=== PATIENT | female | born 1935 | race African-American/Black ===

== ENCOUNTER 2017-09-12 06:22 | Inpatient (IN) ==
[2017-09-11 14:50] LABS: Basophils % 0.7 % (0.0-0.8); Eosinophils # 0.2 10*3/uL (0.0-0.87); Hematocrit 47.5 VOL% (35.7-47.0); Hemoglobin 15.1 GM/DL (12.0-16.0); Immature Granulocytes % 0.2 %; Immature Granulocytes Absolute 0.01 #; Lymphocytes # 1.5 10*3/uL (1.4-4.0); Lymphocytes % 34.4 % (21.3-54.2); Mean Corpuscular HGB Conc 31.8 GM/DL (32-36); Mean Corpuscular Hemoglobin 27 PG (27-34); Mean Corpuscular Volume 85.9 FL (87-102); Mean Platelet Volume 9.2 FL (9.6-12.0); Monocytes # 0.5 10*3/uL (0.11-0.8); Monocytes % 11.9 % (1.7-12.7); Neutrophils # 2.1 10*3/uL (1.4-7.4); Neutrophils % 48.8 % (38.7-73.9); Platelet Count 246 T/CUMM (130-400); Red Blood Count 5.53 MC/CUMM (3.8-5.5); Red Cell Distribution Width 15.9 % (9.3-17.3); White Blood Count 4.2 T/CUMM (4-12)
[2017-09-11 15:13] LABS: Calcium 9.3 MG/DL (8.5-10.1); Potassium 4.2 MMOL/L (3.5-5.1)
[2017-09-12] MEDS ORDERED: ceFAZolin 1,000 MG in SYRINGE 1 EACH IV ONE (06:30)
[2017-09-12] MEDS ORDERED: ceFAZolin 1,000 MG VIAL ONE (08:37)
[2017-09-12] MEDS ORDERED: ISOSULFAN BLUE 5 ML VIAL SUBCUT ONE (10:37)
[2017-09-12] MEDS ORDERED: LACTATED RINGERS 1,000 ML IV SCH (11:30)
[2017-09-12] MEDS ORDERED: fentaNYL 100 MCG/2 ML VIAL ONE (15:32)
[2017-09-12] MEDS ORDERED: PROPOFOL 200 MG/20 ML VIAL IV ONE (15:32)
[2017-09-12] MEDS ORDERED: SEVOFLURANE 1 UNIT/15 MINUTE INH ONE (15:32)
[2017-09-12] MEDS ORDERED: LACTATED RINGERS 1,000 ML IV ONE (15:33)
[2017-09-12] MEDS ORDERED: ONDANSETRON 4 MG/2 ML VIAL ONE (15:33)
[2017-09-12] MEDS ORDERED: GLYCOPYRROLATE 0.4 MG/2 ML VIAL ONE (15:33)
[2017-09-12] MEDS ORDERED: SUCCINYLCHOLINE 200 MG/10 ML VIAL ONE (15:33)
[2017-09-12 15:41] LABS: Apearance,Urine CLEAR (Clear); Bilirubin,Urine Negative (Negative); Blood, Urine Small mg/dL (Negative); Glucose,Urine (UA) Negative (Negative); Ketones,Urine 5 mg/dL (Negative); Mucus,Urine Occasional /LPF (Occasional); Nitrite,Urine Negative (Negative); Protein,Urine Negative; RBC,Urine <1 /HPF (0-4); Urine Color Straw (Yellow); Urine Specific Gravity 1.006 (1.001-1.035); Urine Urobilinogen < 2.0 EU/DL (0.2-1.0); WBC,Urine <1 /HPF (0-6)
[2017-09-12] MEDS ORDERED: PROMETHAZINE 25 MG/1 ML VIAL IM PRN (16:38)
[2017-09-12] MEDS ORDERED: HYDROmorphone 2 MG/1 ML VIAL IV PRN (16:38)
[2017-09-12] MEDS ORDERED: ONDANSETRON 4 MG/2 ML VIAL IV PRN (16:38)
[2017-09-12] MEDS: LACTATED RINGERS 1,000 ML IV SCH (16:50)
[2017-09-12] MEDS: KETOROLAC 15 MG/1 ML VIAL IV SCH (16:58)
[2017-09-12 18:59] LABS: Basophils % 0.4 % (0.0-0.8); Eosinophils % 0.4 % (0.00-10.9); Hematocrit 41.3 VOL% (35.7-47.0); Hemoglobin 13.2 GM/DL (12.0-16.0); Immature Granulocytes % 0.4 %; Immature Granulocytes Absolute 0.03 #; Lymphocytes # 0.8 10*3/uL (1.4-4.0); Lymphocytes % 11.2 % (21.3-54.2); Mean Corpuscular Hemoglobin 28 PG (27-34); Mean Corpuscular Volume 86.4 FL (87-102); Mean Platelet Volume 9.2 FL (9.6-12.0); Monocytes # 0.8 10*3/uL (0.11-0.8); Monocytes % 10.6 % (1.7-12.7); Neutrophils # 5.6 10*3/uL (1.4-7.4); Platelet Count 186 T/CUMM (130-400); Red Blood Count 4.78 MC/CUMM (3.8-5.5); Red Cell Distribution Width 15.7 % (9.3-17.3); White Blood Count 7.3 T/CUMM (4-12)
[2017-09-13] MEDS: LACTATED RINGERS 1,000 ML IV SCH ×4 (01:46→16:12)
[2017-09-13] MEDS: KETOROLAC 15 MG/1 ML VIAL IV SCH ×2 (01:46→05:23)
[2017-09-13] MEDS ORDERED: ENOXAPARIN 40 MG/0.4 ML SYRINGE ONE (07:20)
[2017-09-13] MEDS: ENOXAPARIN 40 MG/0.4 ML SYRINGE SUBCUT SCH (07:22)
[2017-09-13] MEDS: LEVOTHYROXINE 100 MCG TABLET PO SCH (07:23)
[2017-09-13 07:24] LABS: Basophils % 0.2 % (0.0-0.8); Eosinophils % 0.2 % (0.00-10.9); Hematocrit 32.7 VOL% (35.7-47.0); Hemoglobin 10.5 GM/DL (12.0-16.0); Immature Granulocytes % 0.3 %; Immature Granulocytes Absolute 0.02 #; Lymphocytes % 15.6 % (21.3-54.2); Mean Corpuscular HGB Conc 32.1 GM/DL (32-36); Mean Corpuscular Hemoglobin 27 PG (27-34); Mean Corpuscular Volume 84.9 FL (87-102); Mean Platelet Volume 9.7 FL (9.6-12.0); Monocytes # 0.7 10*3/uL (0.11-0.8); Monocytes % 10.6 % (1.7-12.7); Neutrophils # 4.6 10*3/uL (1.4-7.4); Neutrophils % 73.1 % (38.7-73.9); Platelet Count 186 T/CUMM (130-400); Red Blood Count 3.85 MC/CUMM (3.8-5.5); Red Cell Distribution Width 15.6 % (9.3-17.3); White Blood Count 6.2 T/CUMM (4-12)
[2017-09-13 07:54] LABS: Giant Platelets Few; Hypochromasia 1+; Osmolality,Calculated 282.3 MOS/KG (273-304); Platelet Estimate Normal; Potassium 4.9 MMOL/L (3.5-5.1)
[2017-09-13] MEDS: EZETIMIBE 10 MG TABLET PO SCH (10:00)
[2017-09-13] MEDS: LOVASTATIN 20 MG TABLET PO SCH (10:00)
[2017-09-13] MEDS: ASPIRIN EC 325 MG TABLET PO SCH (10:00)
[2017-09-13] MEDS: PANTOPRAZOLE 40 MG VIAL IV SCH (10:00)
[2017-09-13] MEDS: METOPROLOL SUCCINATE XL 100 MG TABLET PO SCH (10:00)
[2017-09-13 22:40] LABS: Hematocrit 27.2 VOL% (35.7-47.0); Hemoglobin 8.8 GM/DL (12.0-16.0)
[2017-09-14] MEDS: LACTATED RINGERS 1,000 ML IV SCH ×2 (04:20→10:02)
[2017-09-14] MEDS: LEVOTHYROXINE 100 MCG TABLET PO SCH (06:14)
[2017-09-14 06:16] LABS: Basophils % 0.4 % (0.0-0.8); Eosinophils # 0.1 10*3/uL (0.0-0.87); Eosinophils % 1.5 % (0.00-10.9); Hematocrit 27.9 VOL% (35.7-47.0); Immature Granulocytes % 0.4 %; Immature Granulocytes Absolute 0.02 #; Lymphocytes # 1.2 10*3/uL (1.4-4.0); Lymphocytes % 21.4 % (21.3-54.2); Mean Corpuscular HGB Conc 32.3 GM/DL (32-36); Mean Corpuscular Hemoglobin 28 PG (27-34); Mean Corpuscular Volume 85.8 FL (87-102); Mean Platelet Volume 10.5 FL (9.6-12.0); Monocytes # 0.6 10*3/uL (0.11-0.8); Monocytes % 11.6 % (1.7-12.7); Neutrophils # 3.5 10*3/uL (1.4-7.4); Neutrophils % 64.7 % (38.7-73.9); Platelet Count 163 T/CUMM (130-400); Red Blood Count 3.25 MC/CUMM (3.8-5.5); Red Cell Distribution Width 15.7 % (9.3-17.3); White Blood Count 5.4 T/CUMM (4-12)
[2017-09-14 06:49] LABS: Calcium 7.6 MG/DL (8.5-10.1); Magnesium 2.1 MG/DL (1.8-2.4); Osmolality,Calculated 284.1 MOS/KG (273-304); Potassium 4.3 MMOL/L (3.5-5.1)
[2017-09-14] MEDS: EZETIMIBE 10 MG TABLET PO SCH (09:56)
[2017-09-14] MEDS: ENOXAPARIN 40 MG/0.4 ML SYRINGE SUBCUT SCH (09:56)
[2017-09-14] MEDS: ASPIRIN EC 325 MG TABLET PO SCH (09:56)
[2017-09-14] MEDS: PANTOPRAZOLE 40 MG VIAL IV SCH (09:56)
[2017-09-14] MEDS: LOVASTATIN 20 MG TABLET PO SCH (09:56)
[2017-09-14] MEDS: METOPROLOL SUCCINATE XL 100 MG TABLET PO SCH (10:02)
[2017-09-15] MEDS: LEVOTHYROXINE 100 MCG TABLET PO SCH (06:16)
[2017-09-15] MEDS: PANTOPRAZOLE 40 MG VIAL IV SCH (10:19)
[2017-09-15] MEDS: ASPIRIN EC 325 MG TABLET PO SCH (10:19)
[2017-09-15] MEDS: ENOXAPARIN 40 MG/0.4 ML SYRINGE SUBCUT SCH (10:19)
[2017-09-15] MEDS: EZETIMIBE 10 MG TABLET PO SCH (10:19)
[2017-09-15] MEDS: LOVASTATIN 20 MG TABLET PO SCH (10:20)
[2017-09-16] MEDS: LEVOTHYROXINE 100 MCG TABLET PO SCH (06:07)
[2017-09-16] MEDS: LOVASTATIN 20 MG TABLET PO SCH (09:49)
[2017-09-16] MEDS: ASPIRIN EC 325 MG TABLET PO SCH (09:50)
[2017-09-16] MEDS: PANTOPRAZOLE 40 MG VIAL IV SCH (09:51)
[2017-09-16] MEDS: EZETIMIBE 10 MG TABLET PO SCH (09:52)
[2017-09-16] MEDS: ENOXAPARIN 40 MG/0.4 ML SYRINGE SUBCUT SCH (09:53)
[2017-09-17 05:01] LABS: Basophils % 0.7 % (0.0-0.8); Eosinophils # 0.2 10*3/uL (0.0-0.87); Eosinophils % 5.1 % (0.00-10.9); Hemoglobin 8.6 GM/DL (12.0-16.0); Immature Granulocytes % 0.7 %; Immature Granulocytes Absolute 0.03 #; Lymphocytes # 1.1 10*3/uL (1.4-4.0); Lymphocytes % 24.1 % (21.3-54.2); Mean Corpuscular HGB Conc 31.9 GM/DL (32-36); Mean Corpuscular Hemoglobin 27 PG (27-34); Mean Corpuscular Volume 85.7 FL (87-102); Mean Platelet Volume 9.4 FL (9.6-12.0); Monocytes # 0.6 10*3/uL (0.11-0.8); Monocytes % 13.1 % (1.7-12.7); Neutrophils # 2.5 10*3/uL (1.4-7.4); Neutrophils % 56.3 % (38.7-73.9); Platelet Count 234 T/CUMM (130-400); Red Blood Count 3.15 MC/CUMM (3.8-5.5); Red Cell Distribution Width 15.5 % (9.3-17.3); White Blood Count 4.4 T/CUMM (4-12)
[2017-09-17 05:48] LABS: Calcium 7.9 MG/DL (8.5-10.1); Magnesium 2.3 MG/DL (1.8-2.4); Osmolality,Calculated 282.8 MOS/KG (273-304); Potassium 3.7 MMOL/L (3.5-5.1)
[2017-09-17] MEDS: LEVOTHYROXINE 100 MCG TABLET PO SCH (06:03)
[2017-09-17] MEDS ORDERED: ROSUVASTATIN 20 MG TABLET PO SCH (09:00)
[2017-09-17] MEDS ORDERED: PANTOPRAZOLE 40 MG TABLET PO ONE (09:09)
[2017-09-17] MEDS: LOVASTATIN 20 MG TABLET PO SCH (09:12)
[2017-09-17] MEDS: ASPIRIN EC 325 MG TABLET PO SCH (09:12)
[2017-09-17] MEDS: EZETIMIBE 10 MG TABLET PO SCH (09:12)
[2017-09-17] MEDS: ENOXAPARIN 40 MG/0.4 ML SYRINGE SUBCUT SCH (09:53)
[2017-09-17 15:47] VITALS: BP 134/78
[2017-09-18] MEDS ORDERED: PANTOPRAZOLE 40 MG TABLET PO SCH (09:00)
== END 2017-09-17 15:55 | disposition swing bed (61) | DRG 580 ==
LOC: N.OR 06:22 → N.SDSINP 06:22 → N.3E 14:10
PROVIDERS: ADMIT Surgery; ATTEND Surgery